=== PATIENT | male | born 1975 | race Caucasian/White ===

== ENCOUNTER 2021-10-15 21:36 | Emergency (ER) | payer OTHER ==
[2021-10-15 22:41] LABS: BASOPHIL 0 % (0-2); EOSINOPHIL 0 % (0-5); HGB 8.6 g/dl (13.2-18.0); LYMPHOCYTE 21.6 % (15-48); MCH 30.7 pg (25.0-31.0); MCHC 35.8 g/dL (32.0-36.0); MCV 85.7 fL (78.0-100.0); MONOCYTE 18.9 % (0-12); MPV 10.6 fL (6.0-9.5); NEUTROPHIL 58.7 % (41-80); NRBC 0; RDW 16.7 % (11.5-14.0); WBC 2.6 K/uL (4.0-10.5)
[2021-10-15 22:45] LABS: INR 1.52 (0.9-1.2); PROTHROMBIN TIME 17.6 SECONDS (11.8-13.4); PTT 38.1 SECONDS (24.4-34.7)
[2021-10-15 23:01] LABS: ALBUMIN 2.5 g/dL (3.4-5.0); BILIRUBIN - TOTAL 3.4 mg/dL (0.2-1.0); BUN/CREAT RATIO (CALC) 9.2 RATIO; CREATININE 0.98 mg/dL (0.67-1.17); GLOBULIN (CALCULATION) 3.8 g/dL; POTASSIUM 2.9 mmol/L (3.5-5.1); TOTAL PROTEIN 6.3 g/dL (6.4-8.2)
[2021-10-15 23:27] LABS: PLT 33 K/uL (150-400)
[2021-10-15 23:37] LABS: C-REACTIVE PROTEIN 4.4 mg/dL (<=0.90)
[2021-10-16 02:38] LABS: INFLUENZA A NAA NEGATIVE (NEGATIVE)
[2021-10-16 02:40] LABS: CORONAVIRUS 2019 SARS-COV-2 POSITIVE (NEGATIVE)
[2021-10-16 02:50] LABS: BILIRUBIN 1+ mg/dL (NEGATIVE); BLOOD TRACE-INTACT Ery/uL (NEGATIVE); COLOR YELLOW (YELLOW); GLUCOSE (U) NORMAL (NORMAL); LEUKOCYTES NEGATIVE Leu/uL (NEGATIVE); NITRITE NEGATIVE (NEGATIVE); PROTEIN NEGATIVE (NEGATIVE)
[2021-10-16 02:58] LABS: CLARITY SLIGHTLY HAZY (CLEAR)
[2021-10-16 03:01] LABS: URINARY WBC RARE
[2021-10-16 03:02] LABS: TRANSITIONAL EPITHELIAL CELLS RARE
[2021-10-16 10:39] LABS: IRON % SATURATION 45.2 %SAT (20-50)
[2021-10-16 10:42] LABS: FOLIC ACID (SERUM) 11.7 ng/mL (8.6-58.9)
[2021-10-16] MEDS ORDERED: ATARAX25 MG PO (15:10)
== END 2021-10-16 17:15 | disposition home or self-care (01) ==
LOC: FER 21:36
PROVIDERS: Emergency Medicine; Emergency Medicine Emergency Medical Services; Nurse Practitioner Family
DX: K74.60 Unspecified cirrhosis of liver (principal); E87.6 Hypokalemia; D61.818 Other pancytopenia; U07.1 COVID-19; F17.210 Nicotine dependence, cigarettes, uncomplicated; F10.10 Alcohol abuse, uncomplicated; Z88.8 Allergy status to other drugs, medicaments and biological substances
CPT/HCPCS: 36415; 71045; 76705; 80053; 81001; 82607; 82728; 82746; 83540; 83550; 83690; 85025; 85610; 85730; 86140; C9113; J1170; J1200; J1885; J2270; J2405; J3411; J3430; J3475; J3480; J7030; J7050; Q9967; U0002

== ENCOUNTER 2021-11-26 13:34 | Emergency (ER) | payer OTHER ==
[~2021-11-26 13:34] MED LIST: ATARAX25 MG PO
[2021-11-26 14:38] LABS: BASOPHIL 0.6 % (0-2); EOSINOPHIL 1.2 % (0-5); HCT 24.1 % (42.0-52.0); HGB 8.6 g/dl (13.2-18.0); LYMPHOCYTE 25.2 % (15-48); MCH 32.7 pg (25.0-31.0); MCHC 35.7 g/dL (32.0-36.0); MCV 91.6 fL (78.0-100.0); MONOCYTE 13.8 % (0-12); MPV 10.8 fL (6.0-9.5); NRBC 0; RBC 2.63 M/uL (4.70-6.00); RDW 19.7 % (11.5-14.0); WBC 5.2 K/uL (4.0-10.5)
[2021-11-26 14:39] LABS: PLT 60 K/uL (150-400)
[2021-11-26 14:42] LABS: INR 1.35 (0.9-1.2)
[2021-11-26 14:43] LABS: PTT 34.9 SECONDS (24.4-34.7)
[2021-11-26 14:51] LABS: BUN/CREAT RATIO (CALC) 12.7 RATIO; CREATININE 1.42 mg/dL (0.67-1.17); POTASSIUM 4.3 mmol/L (3.5-5.1)
== END 2021-11-26 17:15 | disposition home or self-care (01) ==
LOC: FER 13:34
PROVIDERS: Nurse Practitioner Family
DX: R04.0 Epistaxis (principal); I10 Essential (primary) hypertension; F17.210 Nicotine dependence, cigarettes, uncomplicated; Z88.8 Allergy status to other drugs, medicaments and biological substances
CPT/HCPCS: 36415; 80048; 85025; 85610; 85730; 99283